=== PATIENT | male | born 1960 | race Caucasian/White ===

== ENCOUNTER 2021-01-20 13:22 | Emergency (ER) | payer OTHER, SELFPAY ==
[2021-01-20 13:39] VITALS: BP 166/90; PULSE 78; RESP 18; TEMP 37.2; O2SAT 96; BMI 21.4
[2021-01-20 14:05] LABS: COVID19 -Nasal RAPID Negative (Negative)
--- NOTE | 2021-01-20 14:38 | ED.URI ---
HPI - URI/Sore Throat <MOOSE Menendez - Last Filed: 01/20/21 14:44> General Chief Complaint: Upper Respiratory Symptoms Stated Complaint: sore throat/congestion/COVID exposure Time Seen by Provider: 01/20/21 13:47 Source: patient Mode of arrival: Ambulatory History of Present Illness HPI Narrative: 60-year-old female presents to the ED for cough and congestion that started yesterday. He reports that he was exposed to somebody who had COVID 2 weeks ago they usually have lunch together, and he wanted to make sure that this was not COVID. He denies having a fever, he is a smoker, he denies any shortness of breath, nausea or vomiting the, wheezing, or difficulty breathing. He reports that he mostly has a sore throat and congestion. He states that he has not coughed any mucus so far and that his symptoms are worse at night. Related Data Home Medications Medication Instructions Recorded Confirmed ibuprofen 400 mg tablet #0 02/01/16 Previous Rx's Medication Instructions Recorded codeine 10 mg-guaifenesin 100 mg/5 10 ml PO Q4HP PRN #120 08/18/17 mL oral liquid (Guaifenesin AC) Review of Systems <MOOSE Menendez - Last Filed: 01/20/21 14:44> Review of Systems Narrative: General: denies fever, chills Head/Neck: denies headache, neck pain Eyes: denies visual changes, eye pain Cardio: denies chest pain, palpitations Respiratory: denies shortness of breath, endorses cough and sore throat GI: denies abdominal pain, nausea, vomiting, or diarrhea : denies dysuria, hematuria MSK: denies joint pain, muscle weakness Skin: denies rash, itching Neuro: denies numbness, tingling Patient History <MOOSE Menendez - Last Filed: 01/20/21 14:44> Social History Smoking Status: Current every day smoker Smoking Status: Current every day smoker tobacco type: cigarettes alcohol intake frequency: 0-2 drinks per day Alcohol type: beer and wine Substance Use Type: does not use Exam <MOOSE Menendez - Last Filed: 01/20/21 14:44> Narrative Exam Narrative: Independently reviewed vitals signs and nursing notes. General: Awake, alert, nontoxic, no cardiorespiratory distress Head/Neck: Atraumatic, neck full range of motion Eyes: EOMI, conjunctiva normal Nose: nares patent, + post nasal drip and rhinorrhea Mouth/Throat: moist mucus membranes, posterior pharynx normal, no oral lesions Cardio: Regular rate and rhythm, no peripheral edema Respiratory: respirations unlabored without wheezing, stridor, or rales. No retractions. GI: Abdomen soft, nontender MSK: Moves all extremities, neurovascularly intact Skin: Normal capillary refill, no rash Neuro: Normal speech and cognition, normal gait Initial Vital Signs Initial Vital Signs: Vital Signs Temperature 98.9 F 01/20/21 13:39 Pulse Rate 78 01/20/21 13:39 Respiratory Rate 18 01/20/21 13:39 Blood Pressure 166/90 H 01/20/21 13:39 Pulse Oximetry 96 01/20/21 13:39 <Arlette Lange DO - Last Filed: 01/21/21 07:09> Initial Vital Signs Initial Vital Signs: Vital Signs Temperature 98.9 F 01/20/21 13:39 Pulse Rate 78 01/20/21 13:39 Respiratory Rate 18 01/20/21 13:39 Blood Pressure 166/90 H 01/20/21 13:39 Pulse Oximetry 96 01/20/21 13:39 Course <MOOSE Menendez - Last Filed: 01/20/21 14:44> Orders Ordered: ED Orders 01/20/21 13:36 COVID19 -Nasal swab/Pre-Proc Stat Vital Signs Vital signs: Vital Signs - 8 hr 01/20/21 13:39 Temperature 98.9 F Pulse Rate 78 Respiratory Rate 18 Blood Pressure 166/90 H Pulse Oximetry 96 <DO Brooke Carpenter Last Filed: 01/21/21 07:09> Orders Ordered: ED Orders 01/20/21 13:36 COVID19 -Nasal swab/Pre-Proc Stat Vital Signs Vital signs: Vital Signs - 8 hr 01/20/21 13:39 Temperature 98.9 F Pulse Rate 78 Respiratory Rate 18 Blood Pressure 166/90 H Pulse Oximetry 96 MDM - URI/Sore Throat <MOOSE Menendez Filed: 01/20/21 14:44> Lab Data Labs: Lab Results 01/20/21 Range/Units 13:36 SARS-CoV-2 (PCR) Negative (Negative) [facility] Narrative Medical decision making narrative: 60-year-old male presents to the emergency department for sore throat and cough that started yesterday with congestion. His COVID test was negative, he was concerned about in exposure. This is most likely an upper respiratory illness related to a virus. He is nontoxic appearing, vital signs were within normal limits today, he is not short of breath, his breath sounds are clear throughout all lobes. He has some postnasal drip but no lymphadenopathy. His speech is clear, he is able to swallow without difficulty. Patient is appropriate and amenable to discharge home. Vital signs are stable on repeat examination is unremarkable. Patient has been informed of results. Patient has been given strict return to ER precautions for any new or worsening symptoms. Patient understands to follow up closely with outpatient providers as instructed. Patient understands plan and agrees to discharge home. All questions and concerns answered at this time. <Arlette Lange DO - Last Filed: 01/21/21 07:09> Lab Data Labs: Lab Results 01/20/21 Range/Units 13:36 SARS-CoV-2 (PCR) Negative (Negative) Discharge Plan Departure Patient Disposition: Home Clinical Impression: URI with cough and congestion Instructions: DI for Viral Upper Respiratory Infection -- Adult Activity Restrictions/Additional Instructions: *You have been diagnosed with an upper respiratory infection, your COVID test was negative today, congratulations. Please stay hydrated, try not to smoke, ibuprofen and tylenol for pain or fever. I recommend the COVID vaccine if you decide to have it to help yourself stay out of the hospital as well as others. *What to do: *Please continue to take your regular medications as directed. [ ] New medication prescriptions sent to your pharmacy: [ ] [ ] New medication written as a paper prescription [x ] No new medications given *Please follow up with your primary care provider in 2-3 days, call for an appointment. Let them know you were seen in the Emergency Department and that we ask that you be seen in follow up. We will electronically transmit a record of today's note if your PCP is in our system *If you do not have a primary care provider please contact the [facility] Resource line at [phone]. They will ask some questions about your medical history and help get you set up with a doctor in the community. *Return to Emergency Department if you should have any new, worsening or concerning symptoms, such as [fever greater than 101F, chills, worsening pain, persistent vomiting or other bothersome symptoms] Prescriptions: No Action ibuprofen 400 MG tablet Qty: 0 RF: 0 codeine-guaifenesin [Guaifenesin AC] 473 ML liquid 10 ml PO Q4HP PRNQty: 120 RF: 0 <Arlette Lange, - Last Filed: 01/21/21 07:09> Cosign ED Attending Eduardoature Attestation: I was immediately available in the department for consultation. Documentation has been reviewed. I agree with assessment and plan.
== END 2021-01-20 14:46 | disposition home or self-care (01) ==
PROVIDERS: Emergency Medicine; Emergency Provider Nurse Practitioner Critical Care Medicine
DX: J06.9 Acute upper respiratory infection, unspecified (principal); R09.81 Nasal congestion; R05.9 Cough, unspecified; J02.9 Acute pharyngitis, unspecified; Z20.822 Contact with and (suspected) exposure to COVID-19
CPT/HCPCS: 87635; 99281; 99282; C9803

== ENCOUNTER 2023-05-25 18:42 | Emergency (ER) | payer OTHER, SELFPAY ==
[2023-05-25] VITALS (7 sets, daily range): BP systolic 172–200; BP diastolic 95–100; PULSE 64–84; RESP 13–21; TEMP 36.6; O2SAT 97–99; BMI 21.9
--- NOTE | 2023-05-25 19:02 | DI.RAD.S_ITS ---
PROCEDURE: XR CHEST 1V INDICATIONS: chest pain TECHNIQUE: One view of the chest was acquired. COMPARISON: [facility], , CHEST 2 VIEW, 08/17/2016, 23:08. FINDINGS: Surgical changes and devices: None. Lungs and pleura: Left basilar scars and atelectasis. Lungs are lucent, suggesting emphysema. No pleural effusions or pneumothorax. Mediastinum: Mediastinal contours appear normal. Heart size is normal. Bones and chest wall: No suspicious bony lesions. Overlying soft tissues appear unremarkable. IMPRESSION: No acute cardiopulmonary abnormality is seen. Dictated by: Anu James M.D. on 05/25/2023 at 19:38 Approved by: Anu James M.D. on 05/25/2023 at 19:38
[2023-05-25] MEDS: ASPIRIN 81 MG CHEW TAB 324 MG PO (19:13)
[2023-05-25 19:24] LABS: Add Manual Diff / Slide Review NO; Basophils Absolute Auto 100 /uL (0-100); Basophils Percent Auto 1.4 % (0-2); Eosinophils Absolute Auto 200 /uL (0-450); Hematocrit 44.7 % (41-53); Hemoglobin 15.1 g/dL (13.5-17.5); INR 0.9 (0.9-1.3); Lymphocytes Absolute Auto 1500 /uL (1100-4500); Lymphocytes Percent Auto 23.6 % (25-40); Mean Corpuscular HGB Conc 33.8 % (30-36); Mean Corpuscular Hemoglobin 34.4 PG (26-34); Mean Corpuscular Volume 101.7 fL (80-100); Monocytes Absolute Auto 500 /uL (0-900); Monocytes Percent Auto 8.6 % (3-14); Neutrophils Absolute Auto 4000 /uL (1500-7000); Neutrophils Percent Auto 63.4 % (50-75); Platelet Count 229 X10^3/uL (150-400); Red Blood Cell Count 4.39 X10^6/uL (4.5-5.9); Red Cell Distribution Width 13.8 % (11.6-14.8); White Blood Cell Count 6.3 X10^3/uL (4.5-11.0)
--- NOTE | 2023-05-25 19:24 | PC.NURSE ---
patient states that his chest pain happens in the Am when he gets up. Then it goes away. He also complains that he has numbness on the right side of his neck that comes and goes. He states that he has 10 vodkas per day and last had one drink was yesterday and has not detoxed from alcohol from a very long time.
[2023-05-25 19:27] LABS: PTT Partial Thromboplastin Tim 48 SECONDS (25.1-36.5)
[2023-05-25 19:29] LABS: Alanine Aminotransferase 58 IU/L (<50); Albumin 4.5 g/dL (3.5-5.0); Albumin Globulin Ratio 1.4 (1.0-2.8); Alkaline Phosphatase 83 U/L (38-126); Aspartate Aminotransferase 57 IU/L (17-59); BUN Creatinine Ratio 17.3 (6-22); Bilirubin Total 1.3 mg/dL (0.2-1.3); Blood Urea Nitrogen 14 mg/dL (9-20); Calcium 9.6 mg/dL (8.4-10.2); Carbon Dioxide 23 mmol/L (22-32); Chloride 106 mmol/L (98-107); Creatine Kinase 61 U/L (55-170); Estimated Glomerular Filt Rate > 60 mL/min (>60); Globulin 3.3 g/dL (1.7-4.1); Glucose 99 mg/dL (80-110); HEMOLYSIS 26 (0-50); Lipase 115 U/L (23-300); Magnesium 1.8 mg/dL (1.6-2.3); Potassium 4.2 mmol/L (3.4-5.1); Sodium 135 mmol/L (137-145); Total Protein 7.8 g/dL (6.3-8.2)
[2023-05-25 19:40] LABS: Troponin I < 0.012 ng/mL (0.01-0.034)
--- NOTE | 2023-05-25 20:13 | ED.CHESTPAIN ---
HPI - Chest Pain General Chief Complaint: Chest Pain Stated Complaint: Right side neck pain, Chest pain Time Seen by Provider: 05/25/23 19:59 Source: patient Mode of arrival: Ambulatory Limitations: no limitations History of Present Illness HPI narrative: 62-year-old male here with a chief complaint of chest pain. The patient told me that he has for the last week had 5 minutes of substernal chest pain in the morning. Also today he is having some intermittent tingling on the right side of his neck. This is not accompanied by headache numbness or weakness. He has not presently having chest pain or shortness of breath. He does not have exertional chest pain. He has no known history of coronary disease. The patient does have multiple risk factors including family history, he has a smoker, he has a history of hypertension, he says that he recently had his primary care doctor write him a prescription for a statin and medications for blood pressure, he has not started taking them yet and does not know what they are. He has not a diabetic, there is a family history of coronary disease. Additionally he says that he drinks heavily about 10 drinks a day. Related Data Home Medications Medication Instructions Recorded Confirmed ibuprofen 400 mg tablet ##0 02/01/16 Previous Rx's Medication Instructions Recorded codeine 10 mg-guaifenesin 100 mg/5 10 ml PO Q4HP PRN ##120 08/18/17 mL oral liquid (Guaifenesin AC) Allergies Allergy/AdvReac Type Severity Reaction Status Date / Time No Known Drug Allergies Allergy Verified 05/25/23 18:56 Patient History Social History (Reviewed 01/20/21 @ 14:40 by Violet Melendez [facility]) Smoking Status: Current every day smoker Smoking Status: Current every day smoker tobacco type: cigarettes alcohol intake frequency: 0-2 drinks per day Alcohol type: beer and wine Substance Use Type: does not use Exam Narrative Exam Narrative: Alert, no acute distress. Some alcohol on his breath HEENT: Normocephalic, atraumaitic moist mucus membranes Neck: Supple no midline tenderness Lungs: Clear to ascultaion, no respiratory distress Heart: Regular rhythm and rate no murmur Abdomen: Normal bowel sounds, soft and nontender Extremeties: Full range of motion no deformity Neuro: Alert and oriented, normal speech moves x4. No facial droop or asymmetry pupils are equal round and reactive extraocular movements are intact speech is fluent Initial Vital Signs Initial Vital Signs: Vital Signs Pulse Rate 82 05/25/23 18:50 Respiratory Rate 13 05/25/23 18:50 Blood Pressure 200/95 H 05/25/23 18:50 Pulse Oximetry 98 05/25/23 18:50 Course Orders Ordered: Discontinued Medications Aspirin (Aspirin 81 Mg Chew Tab) 324 mg PO NOW ONE Stop: 05/25/23 19:02 Last Admin: 05/25/23 19:13 Dose: 324 mg Documented By: SB Vital Signs Vital signs: Vital Signs - 8 hr 05/25/23 18:50 05/25/23 18:50 05/25/23 18:56 Temperature 97.8 F Pulse Rate 82 78 Respiratory Rate 13 18 Blood Pressure 200/95 H 200/95 H Pulse Oximetry 98 99 Oxygen Delivery Method Room Air 05/25/23 19:00 05/25/23 19:17 05/25/23 19:17 Temperature Pulse Rate 73 79 Respiratory Rate 15 14 Blood Pressure 193/95 H Pulse Oximetry 99 99 Oxygen Delivery Method 05/25/23 19:30 05/25/23 20:00 Temperature Pulse Rate 74 64 Respiratory Rate 19 21 Blood Pressure Pulse Oximetry 97 99 Oxygen Delivery Method MDM - Chest Pain Lab Data Lab results narrative: CBC with diff and CMP are unremarkable, troponin is normal 05/25/23 19:02 05/25/23 19:02 Labs: Lab Results 05/25/23 Range/Units 19:02 WBC 6.3 (4.5-11.0) X10^3/uL RBC 4.39 L (4.5-5.9) X10^6/uL Hgb 15.1 (13.5-17.5) g/dL Hct 44.7 (41-53) % MCV 101.7 H (80-100) fL MCH 34.4 H (26-34) PG MCHC 33.8 (30-36) % RDW 13.8 (11.6-14.8) % Plt Count 229 (150-400) X10^3/uL Neut % (Auto) 63.4 (50-75) % Lymph % (Auto) 23.6 L (25-40) % Wilson % (Auto) 8.6 (3-14) % Eos % (Auto) 3.0 (2-4) % Baso % (Auto) 1.4 (0-2) % Neut # (Auto) 4000 (7577-3511) /uL Lymph # (Auto) 1500 (4934-1314) /uL Wilson # (Auto) 500 (0-900) /uL Eos # (Auto) 200 (0-450) /uL Baso # (Auto) 100 (0-100) /uL PT 10.0 (9.4-12.5) SECONDS INR 0.9 (0.9-1.3) APTT 48 H (25.1-36.5) SECONDS Sodium 135 L (137-145) mmol/L Potassium 4.2 (3.4-5.1) mmol/L Chloride 106 (98-107) mmol/L Carbon Dioxide 23 (22-32) mmol/L BUN 14 (9-20) mg/dL Creatinine 0.81 (0.66-1.25) mg/dL Estimated GFR > 60 (>60) mL/min BUN/Creatinine Ratio 17.3 (6-22) Glucose 99 (80-110) mg/dL Calcium 9.6 (8.4-10.2) mg/dL Magnesium 1.8 (1.6-2.3) mg/dL Total Bilirubin 1.3 (0.2-1.3) mg/dL AST 57 (17-59) IU/L ALT 58 H (<50) IU/L Alkaline Phosphatase 83 (38-126) U/L Total Creatine Kinase 61 (55-170) U/L Troponin I < 0.012 (0.01-0.034) ng/mL Total Protein 7.8 (6.3-8.2) g/dL Albumin 4.5 (3.5-5.0) g/dL Globulin 3.3 (1.7-4.1) g/dL Albumin/Globulin Ratio 1.4 (1.0-2.8) Lipase 115 (23-300) U/L Imaging Data Chest x-ray: My Impression: Independent review, no acute disease Radiologist's Impression: Radiologist report indicates no acute cardiopulmonary disease ECG Data Interpretation: ECG shows normal sinus rhythm at [address] segment changes occasional PVCs no evidence of previous infarction intervals are normal MDM Narrative Medical decision making narrative: 62-year-old man with atypical chest pain no objective findings for coronary disease, no infiltrate on chest x-ray presentation is not suggest pulmonary embolism. Had paresthesias of his neck and face, neurologically intact on exam I do not think this is stroke. The patient is reassured I recommended follow up with primary care. Discharge Plan Departure Patient Disposition: Home Clinical Impression: Atypical chest pain, Paresthesias Instructions: DI for Atypical Chest Pain Activity Restrictions/Additional Instructions: Emergency department workup today is not suggest any acute process such as stroke or heart attack causing her symptoms at this point. Your blood pressure is high, I strongly recommend you start taking the blood pressure medication your primary care provider prescribed, also recommend you take the statin that he prescribed. You are reporting excessive alcohol use, I recommend that you decrease your alcohol use, it may be necessary did discuss treatment for alcohol abuse with your primary care provider. You can try omeprazole 20 mg daily taken in the morning to decrease stomach acid secretion. If you are having increasing chest pain, new one-sided weakness, severe headache, difficulty with speech or other acute symptoms recheck in the emergency department. Follow up soon with your primary care provider to discuss her chest pain symptoms. Prescriptions: No Action ibuprofen 400 MG tablet Qty: 0 codeine-guaifenesin [Guaifenesin AC] 473 ML liquid 10 ml PO Q4HP PRNQty: 120 0RF Stand Alone Forms: Patient Portal/API
== END 2023-05-25 20:30 | disposition home or self-care (01) ==
PROVIDERS: Emergency Provider Emergency Medicine
DX: R07.9 Chest pain, unspecified (principal); R20.2 Paresthesia of skin
CPT/HCPCS: 36415; 71045; 80053; 82550; 83690; 83735; 84484; 85025; 85610; 85730; 93005; 93010; 99284